=== PATIENT | female | born 1980 | race Caucasian/White ===

== ENCOUNTER 2023-04-06 11:40 | Outpatient (CLI) | payer OTHER, SELFPAY | END 2023-04-06 11:41 | disposition home or self-care (01) | PROVIDERS: Visit Provider Obstetrics & Gynecology | DX: Z01.419 Encounter for gynecological examination (general) (routine) without abnormal findings (principal); E03.9 Hypothyroidism, unspecified | CPT/HCPCS: 84443 ==

== ENCOUNTER 2023-06-07 07:55 | Outpatient (CLI) | payer OTHER, SELFPAY ==
--- NOTE | 2023-06-07 08:15 | CRLHL7_ITS ---
For Patients: As a result of the Century Cures Act, medical imaging exams and procedure reports are released immediately into your electronic medical record. You may view this report before your referring provider. If you have questions, please contact your health care provider. BILATERAL SCREENING MAMMOGRAM WITH COMPUTER-AIDED DETECTION AND TOMOSYNTHESIS INDICATION: 42-year-old asymptomatic female. Screening evaluation. TECHNIQUE: CC and MLO views were obtained. This study was evaluated with assistance of computer-aided detection. Digital breast tomosynthesis used in interpretation. COMPARISON: None. This is the patient`s baseline mammogram. FINDINGS: Breast composition: There are scattered areas of fibroglandular density . Within the inferomedial RIGHT breast at approximately the 4 o`clock position between 10 and 11 cm from the nipple is a focal asymmetry which may simply reflect superimposed breast tissue. However the patient should be recalled for spot compression views in the CC and true ML projection as a first step. Ultrasound may be required. The LEFT breast is negative. IMPRESSION: Asymmetry inferomedial RIGHT breast for which additional imaging and possibly ultrasound are recommended. BI-RADS Category 0: Incomplete: Need Additional Imaging Evaluation and/or Prior Mammograms for Comparison [facility] will contact the patient for follow-up. A lay language report of this examination will be provided to the patient. Dictated by: Jimmie Javier MD @06/08/2023 10:25:12 AM/beto PAREDES/Dictated by: Jimmie Javier MD @ 06/08/2023 10:25:00 AM (Electronically Signed)
== END 2023-06-07 07:56 | disposition home or self-care (01) ==
LOC: MAMMO 07:57
PROVIDERS: Visit Provider Obstetrics & Gynecology
DX: Z12.31 Encounter for screening mammogram for malignant neoplasm of breast (principal); R92.2 Inconclusive mammogram
CPT/HCPCS: 77063; 77067

== ENCOUNTER 2023-06-15 09:38 | Outpatient (CLI) | payer OTHER, SELFPAY ==
--- NOTE | 2023-06-15 09:45 | CRLHL7_ITS ---
For Patients: As a result of the Cures Act, medical imaging exams and procedure reports are released immediately into your electronic medical record. You may view this report before your referring provider. If you have questions, please contact your health care provider. DIGITAL DIAGNOSTIC RIGHT MAMMOGRAM USING TOMOSYNTHESIS AND COMPUTER-AIDED DETECTION RIGHT BREAST ULTRASOUND CLINICAL HISTORY: RIGHT breast mass/asymmetry. COMPARISON: 06/07/2023. TECHNIQUE: Digital RIGHT mammogram in three projections. Tomosynthesis and CAD utilized. Real-time ultrasound imaging of RIGHT breast with imaging documentation. BREAST COMPOSITION: There are areas of scattered fibroglandular density. FINDINGS: 3D spot compression CC/MLO and 3D true lateral RIGHT breast mammogram images submitted. Decreased conspicuity of previously noted asymmetric density. No suspicious mass or architectural distortion. No adenopathy or suspicious calcifications. Targeted RIGHT breast ultrasound performed at 4 o`clock 9 cm from the nipple. Normal fibroglandular tissue is present. IMPRESSION: No evidence of malignancy. RECOMMENDATIONS: Annual BILATERAL screening mammography. Results and recommendations discussed with the patient. BI-RADS Category 2: Benign A lay language report of this examination will be provided to the patient. Dictated by Ricci Gilliland MD @ 06/15/2023 10:37:39 AM jj/Dictated by: Ricci Gilliland MD @ 06/15/2023 10:37:00 AM (Electronically Signed)
--- NOTE | 2023-06-15 10:15 | CRLHL7_ITS ---
For Patients: As a result of the Cures Act, medical imaging exams and procedure reports are released immediately into your electronic medical record. You may view this report before your referring provider. If you have questions, please contact your health care provider. PLEASE SEE DIGITAL DIAGNOSTIC RIGHT MAMMOGRAM PERFORMED SAME DAY CRL:rich [email or web address]/Dictated by: Ricci Gilliland MD @ 06/15/2023 10:37:00 AM (Electronically Signed)
== END 2023-06-15 09:39 | disposition home or self-care (01) ==
LOC: MAMMO 09:38
PROVIDERS: Visit Provider Obstetrics & Gynecology
DX: N63.10 Unspecified lump in the right breast, unspecified quadrant (principal); R92.8 Other abnormal and inconclusive findings on diagnostic imaging of breast
CPT/HCPCS: 76642; 77065; G0279

== ENCOUNTER 2024-05-10 14:35 | Outpatient (CLI) | payer OTHER, SELFPAY | END 2024-05-10 14:36 | disposition home or self-care (01) | LOC: NFLDREF 05-11 09:15 | PROVIDERS: Visit Provider Obstetrics & Gynecology | DX: Z01.419 Encounter for gynecological examination (general) (routine) without abnormal findings (principal); E03.9 Hypothyroidism, unspecified | CPT/HCPCS: 84443 ==

== ENCOUNTER 2024-06-25 10:02 | Outpatient (CLI) | payer OTHER, SELFPAY ==
--- NOTE | 2024-06-25 10:15 | CRLHL7_ITS ---
For Patients: As a result of the Century Cures Act, medical imaging exams and procedure reports are released immediately into your electronic medical record. You may view this report before your referring provider. If you have questions, please contact your health care provider. BILATERAL SCREENING MAMMOGRAM WITH COMPUTER-AIDED DETECTION AND TOMOSYNTHESIS TECHNIQUE: CC and MLO views were obtained. These mammographic images have been obtained using full-field digital technique. These mammographic images were interpreted with the benefit of computer-aided detection. Breast Tomosynthesis was used in this interpretation. COMPARISON FILM: 06/07/23, 06/15/23(RT ONLY). FINDINGS: There are scattered areas of fibroglandular density IMPRESSION: There is no radiographic evidence for malignancy. ASSESSMENT: BI-RADS Category 2: Benign RECOMMENDATION: Routine screening mammogram in 1 year. A lay language report of this examination will be provided to the patient. Ricci Gilliland M.D. Diagnostic Radiologist [email or web address] LENA/Dictated by: Ricci Gilliland MD @ 06/25/2024 10:44:00 AM (Electronically Signed)
== END 2024-06-25 10:03 | disposition home or self-care (01) ==
LOC: MAMMO 10:03
PROVIDERS: Visit Provider Obstetrics & Gynecology
DX: Z12.31 Encounter for screening mammogram for malignant neoplasm of breast (principal)
CPT/HCPCS: 77063; 77067

== ENCOUNTER 2024-11-22 13:00 | Outpatient (RCR) | payer OTHER, SELFPAY | END 2025-01-17 15:28 | disposition home or self-care (01) | PROVIDERS: PCP Registered Nurse; Visit Provider Registered Nurse | DX: M54.12 Radiculopathy, cervical region (principal); M79.601 Pain in right arm; M25.60 Stiffness of unspecified joint, not elsewhere classified; M62.81 Muscle weakness (generalized); Z51.89 Encounter for other specified aftercare | CPT/HCPCS: 97110; 97140; 97161 ==

== ENCOUNTER 2025-07-03 13:57 | Outpatient (CLI) | payer OTHER, SELFPAY ==
[2025-07-06 02:10] LABS: HPV Source Cervix
[2025-07-09 11:24] LABS: Pap Test Digital Imaging Done
== END 2025-07-03 13:58 | disposition home or self-care (01) ==
PROVIDERS: Visit Provider Registered Nurse
DX: Z12.4 Encounter for screening for malignant neoplasm of cervix (principal); Z13.9 Encounter for screening, unspecified; E03.9 Hypothyroidism, unspecified
CPT/HCPCS: 87624; 87625; 88141; 88142; 88175

== ENCOUNTER 2025-07-10 09:18 | Outpatient (CLI) | payer OTHER, SELFPAY ==
--- NOTE | 2025-07-10 09:15 | CRLHL7_ITS ---
For Patients: As a result of the Century Cures Act, medical imaging exams and procedure reports are released immediately into your electronic medical record. You may view this report before your referring provider. If you have questions, please contact your health care provider. INDICATION: BILATERAL SCREENING MAMMOGRAM, ASYMPTOMATIC 44 Y/O FEMALE COMPARISON: 06/25/2024, 06/15/2023, 06/07/2023 TECHNIQUE: Digital mammogram in CC and MLO projections including computer-aided detection (CAD) and tomosynthesis. BREAST COMPOSITION: There are scattered areas of fibroglandular density. FINDINGS: No suspicious findings. ASSESSMENT: BI-RADS 1 Negative RECOMMENDATION: Annual screening mammogram. A lay language report of this examination will be provided to the patient. Dictated by: Chiqui Bolden MD @ 07/11/2025 20:48:28 (Electronically Signed)
== END 2025-07-10 09:19 | disposition home or self-care (01) ==
LOC: MAMMO 09:18
PROVIDERS: Visit Provider Obstetrics & Gynecology
DX: Z12.31 Encounter for screening mammogram for malignant neoplasm of breast (principal)
CPT/HCPCS: 77063; 77067

== ENCOUNTER 2025-07-12 10:54 | Outpatient (CLI) | payer OTHER, SELFPAY ==
--- NOTE | 2025-07-12 11:15 | CRLHL7_ITS ---
For Patients: As a result of the Century Cures Act, medical imaging exams and procedure reports are released immediately into your electronic medical record. You may view this report before your referring provider. If you have questions, please contact your health care provider. INDICATION: Lost IUD strings COMPARISON: None. TECHNIQUE: 2D agustin-scale and color Doppler images were acquired of the pelvis using a transabdominal and transvaginal approach. Transvaginal imaging performed to better visualize the endometrial stripe and ovaries. FINDINGS: Sonographic images demonstrate a normal size and smooth outer contour of the uterus. Uterus measures 9.4 cm in length by 4.6 cm in AP diameter by 6.3 cm in transverse dimension. The myometrium has a normal uniform echotexture. IUD is present in good position within the endometrial canal. Endometrial thickness approximately 3 millimeters. The right ovary measures 4.1 x 2.5 x 2.8 cm in size and the left ovary measures 2.5 x 1.3 x 1.9 cm. The ovaries demonstrate normal arterial and venous blood flow on color Doppler analysis. There are no suspicious fluid collections within the cul-de-sac. 2.5 cm benign right ovarian cyst. IMPRESSION: Normal position of an IUD within the endometrial canal. Dictated by Ricci Gilliland MD @ 07/12/2025 2:54:43 PM (Electronically Signed)
== END 2025-07-12 10:55 | disposition home or self-care (01) ==
LOC: US 10:54
PROVIDERS: Visit Provider Registered Nurse
DX: T83.32XA Displacement of intrauterine contraceptive device, initial encounter (principal)
CPT/HCPCS: 76830; 76856